=== PATIENT | female | born 1975 | race Hispanic/Latino ===

== ENCOUNTER 2019-11-06 16:59 | Inpatient (IN) | payer OTHER, SELFPAY ==
[2019-11-06] MEDS ORDERED: DOXYCYCLINE HYCLATE 100 MG TABLET PO SCH (21:00)
[2019-11-06] MEDS ORDERED: ERGOCALCIFEROL (VITAMIN D2) 50,000 UNIT CAPSULE PO ONE (21:00)
[2019-11-06] MEDS ORDERED: ALBUTEROL INHALER 90MCG/INH IH PRN (21:00)
[2019-11-06] MEDS ORDERED: LACTULOSE 20 GM/30 ML UDCUP PO PRN (21:00)
[2019-11-06] MEDS ORDERED: ONDANSETRON HCL 4 MG/2 ML VIAL IV PRN (21:00)
[2019-11-06] MEDS ORDERED: ACETAMINOPHEN 325 MG TAB PO PRN ×2 (21:00)
[2019-11-06] MEDS ORDERED: CEFTRIAXONE SODIUM 1 GM IVP SCH (21:00)
[2019-11-06] MEDS ORDERED: METHYLPREDNISOLONE SOD SUCC 40MG/ML 1ML IVP SCH (21:00)
[2019-11-06] MEDS ORDERED: ALBUTEROL INHALER 90MCG/INH IH ONE (21:57)
[2019-11-06] MEDS ORDERED: METHYLPREDNISOLONE SOD SUCC 40MG/ML 1ML ONE (21:57)
[2019-11-06] MEDS ORDERED: DOXYCYCLINE HYCLATE 100 MG TABLET PO ONE (21:58)
[2019-11-06] MEDS ORDERED: ERGOCALCIFEROL (VITAMIN D2) 50,000 UNIT CAPSULE ONE (21:58)
[2019-11-06] MEDS ORDERED: ASCORBIC ACID 500 MG TAB ONE (21:58)
[2019-11-06] MEDS ORDERED: ENOXAPARIN SODIUM 40 MG/0.4 ML SYRINGE SQ ONE (21:59)
[2019-11-06] MEDS ORDERED: ZINC SULFATE 220 CAPSULE ONE (21:59)
[2019-11-06] MEDS ORDERED: CEFTRIAXONE SODIUM 1 GM ONE (21:59)
[2019-11-06] MEDS ORDERED: ONDANSETRON HCL 4 MG/2 ML VIAL ONE (23:23)
[2019-11-07] MEDS ORDERED: AZITHROMYCIN 500MG+NS 250ML 250 ML IV ONE (00:08)
[2019-11-07] MEDS ORDERED: CEFTRIAXONE SODIUM 1 GM ONE ×2 (08:04→20:34)
[2019-11-07] MEDS ORDERED: DOXYCYCLINE HYCLATE 100 MG TABLET PO ONE ×2 (08:04→20:34)
[2019-11-07] MEDS ORDERED: METHYLPREDNISOLONE SOD SUCC 40MG/ML 1ML ONE ×3 (08:04→20:34)
[2019-11-07] MEDS ORDERED: ASCORBIC ACID 500 MG TAB PO SCH (09:00)
[2019-11-07] MEDS ORDERED: ENOXAPARIN SODIUM 40 MG/0.4 ML SYRINGE SQ SCH (09:00)
[2019-11-07] MEDS ORDERED: ZINC SULFATE 220 CAPSULE PO SCH (09:00)
--- NOTE | 2019-11-07 14:46 | NUR ---
CALL TO DAUGHTER JULEE ON THE PHONE FOR DC PLANNING STATES PATIENT IS INDP ACTIVE, DRIVES , NO DME/HH/PROVIDER SERVICES PATIENT LIVES WITH [facility] WHO WILL PROVIDE TRANSPORT. DCP HOME Addendum: 11/07/19 at 1448 by JODY NOLASCO RN CM Amended: Links added.
[2019-11-07 20:20] VITALS: BP 135/73; PULSE 66; RESP 20; TEMP 98.4
[2019-11-07 20:37] VITALS: PULSE 75; RESP 28
[2019-11-07] MEDS ORDERED: ACETAMINOPHEN 325 MG TAB ONE (22:00)
[2019-11-07] MEDS ORDERED: ONDANSETRON HCL 4 MG/2 ML VIAL ONE (22:51)
[2019-11-08] VITALS: BP 125/75; PULSE 67; RESP 20; TEMP 98
[2019-11-08 04:00] VITALS: BP 135/73; PULSE 62; RESP 18; TEMP 97.7
[2019-11-08 06:52] VITALS: PULSE 77; RESP 28
[2019-11-08] MEDS ORDERED: ZINC SULFATE 220 CAPSULE ONE ×2 (09:36→10:01)
[2019-11-08] MEDS ORDERED: METHYLPREDNISOLONE SOD SUCC 125MG/2ML VIAL ONE ×2 (09:36→10:02)
[2019-11-08] MEDS ORDERED: ASCORBIC ACID 500 MG TAB ONE ×2 (09:36→10:01)
[2019-11-08] MEDS ORDERED: DOXYCYCLINE HYCLATE 100 MG TABLET PO ONE (09:36)
[2019-11-08] MEDS ORDERED: ENOXAPARIN SODIUM 40 MG/0.4 ML SYRINGE SQ ONE ×2 (09:37→10:02)
[2019-11-08] MEDS ORDERED: CEFTRIAXONE SODIUM 1 GM ONE ×2 (09:37→10:02)
[2019-11-08] MEDS ORDERED: FAMOTIDINE/PF 20 MG/2 ML VIAL IV ONE (10:02)
[2019-11-08] MEDS ORDERED: METHYLPREDNISOLONE SOD SUCC 40MG/ML 1ML ONE (13:50)
== END 2019-11-08 18:39 | disposition home or self-care (01) | DRG 177 ==
LOC: EDH 16:59 → EDHIP 17:00
PROVIDERS: ADMIT Hospitalist; ATTEND Hospitalist
DX: U07.1 COVID-19 (principal); J12.89 Other viral pneumonia; E87.2 Acidosis; N39.0 Urinary tract infection, site not specified; E66.01 Morbid (severe) obesity due to excess calories; R06.03 Acute respiratory distress